=== PATIENT | male | born 1955 | race Two or more races ===

== ENCOUNTER 2017-03-04 15:09 | Emergency (ER) | payer OTHER ==
[~2017-03-04] VITALS: Ht 165.1 cm; Wt 45.4 kg
[2017-03-04 16:37] VITALS: BP 149/87
== END 2017-03-04 17:16 | disposition home or self-care (01) ==
LOC: ER 15:17
DX: R07.89 Other chest pain (principal); V49.9XXA Car occupant (driver) (passenger) injured in unspecified traffic accident, initial encounter; Y93.89 Activity, other specified; Y99.8 Other external cause status; Y92.89 Other specified places as the place of occurrence of the external cause
CPT/HCPCS: 71020; 93005